=== PATIENT | female | born 1955 | race Caucasian/White ===

== ENCOUNTER → 2016-10-27 | Day surgery (SDC) | payer OTHER ==
[~2016-10-27] MED LIST: ASPI-99 PO; BUPIVACAINE/EPINEPHRINE 0.5% PF 30 ML VIAL ONE; CALC600T10 PO; FISH1000 PO; KETOROLAC TROMETHAMINE 30 MG/ML (IVP) VIAL IV PUSH ONE; LACTATED RINGER'S 1000 ML INJ 1,000 ML ONE; MIDAZOLAM HCL 2 MG/2 ML VIAL ONE; ONDANSETRON HCL 4 MG/2 ML VIAL IV PUSH ONE; PARO20TA PO; PRAV20 PO; PROPOFOL 200 MG/20 ML AMP IV ONE; TAB-TAB PO; ceFAZolin INJ 1,000 MG VIAL ONE
--- NOTE | 2016-10-27 09:12 | MP ---
cc: HERON BILLY M.D. DATE OF SURGERY 10/27/2016 PREOPERATIVE DIAGNOSIS 1. Abnormal ultrasound findings, fluid in endometrial canal. 2. Suspected endometrial polyp. 3. Personal history of breast cancer and tamoxifen use. 4. Postmenopausal status. POSTOPERATIVE DIAGNOSIS 1. Abnormal ultrasound findings, fluid in endometrial canal. 2. Endometrial leiomyoma. 3. Personal history of breast cancer and tamoxifen use. 4. Postmenopausal status. 5. Postop day number zero. INDICATIONS Romy Mendoza is a 61-year-old postmenopausal G3, P3 who was seen and evaluated on the office on referral from primary care doctor for incidental finding on imaging of fluid in the endometrial canal and possible mass. The patient has no symptoms, no postmenopausal bleeding, but history was significant for breast cancer treated with tamoxifen x5 years. On office evaluation, cervix was stenotic, unable to obtain an endometrial biopsy and imaging findings were persistent with suspected endometrial polyp visualized. The risks, benefits and alternatives of the procedure were discussed with the patient. She desired definitive tissue diagnosis with hysteroscopy in the OR. PROCEDURE PERFORMED 1. Exam under anesthesia 2. Operative hysteroscopy with MyoSure myomectomy. SURGEON Heron Billy MD [employer] Elliott Domínguez, MS3 TYPE OF ANESTHESIA General using LMA. ESTIMATED BLOOD LOSS 10 mL IV FLUID REPLACEMENT 500 mL URINE OUTPUT None. The patient voided prior to the procedure and the urethra was not instrumented intraoperatively. COMPLICATIONS None COUNTS Correct sponge, lap, instrument, and needle counts x2 at the conclusion of the procedure. PROPHYLAXIS SCD's are on and functioning throughout the entire case. Ancef 2 grams IV was given preoperatively. INTRAOPERATIVE FINDINGS Include a multiparous 3 cm, atrophic smooth cervix which was stenotic. The uterus itself was anteflexed approximately 7 cm. Adnexa were not palpable. After successful cervical dilation on hysteroscopic evaluation of the endometrial cavity, endometrial cavity had a large approximately 1-2 cm leiomyoma on the anterior wall near the left tubal ostia, as well as small soft tissue mass possible polyp near the right tubal ostia both these were successfully removed with MyoSure device. SPECIMEN Includes endometrial mass, suspect leiomyoma. PROCEDURE IN DETAIL After reviewing the informed consent, the patient was taken to the operating suite where a time-out was performed to identify the patient, planned procedure and allergies to drugs or drug products. The patient was then placed in the dorsal supine position and general anesthesia using LMA was administered without difficulty and found to be adequate. The patient was then gently elevated into high lithotomy position in candy cane stirrups. Exam under anesthesia was performed with results as listed above. The perineum was then prepped and draped in a normal sterile fashion. Sterile speculum was placed vaginally. Cervix was visualized, grasped on the anterior lip with a single-tooth tenaculum. A paracervical block was then performed using 10 mL of 0.5% Marcaine with epinephrine. The uterus was sounded to 6 cm. Progression of cervical dilators were then used to dilate up to accommodate the operative hysteroscope. The hysteroscope was introduced, fluid management system was activated and the endometrial cavity was visualized with results as listed above. The MyoSure device was introduced and used to successfully remove endometrial masses. The device was then removed as was the tenaculum. A sponge stick was used for hemostasis. Speculum issue was removed vaginally and the procedure concluded at this point. The patient tolerated the procedure well without complication. DISPOSITION The patient will be discharged home today from the postop area. She has office followup in one to two weeks and is aware of postoperative precautions. MD ROSA ELENA Benson/SONIA /8:09 AM /9:01 AM [place]
== END | disposition home or self-care (01) ==
LOC: ESDC 06:24
PROVIDERS: ATTEND Obstetrics & Gynecology
DX: D25.9 Leiomyoma of uterus, unspecified (principal); R93.8 Abnormal findings on diagnostic imaging of other specified body structures; Z85.3 Personal history of malignant neoplasm of breast; N88.2 Stricture and stenosis of cervix uteri
CPT/HCPCS: 00952; 58561; 88305; J0690; J1885; J2250; J2405; J3010; J7120